=== PATIENT | female | born 1950 | race Caucasian/White ===

== ENCOUNTER 2020-01-01 07:19 | Outpatient (CLI) | payer OTHER | END 2020-01-01 09:36 | disposition home or self-care (01) | LOC: TOM 07:19 | PROVIDERS: ATTEND Internal Medicine Gastroenterology | DX: K56.600 Partial intestinal obstruction, unspecified as to cause (principal) ==

== ENCOUNTER 2022-12-13 14:50 | Emergency (ER) | payer OTHER ==
[~2022-12-13] VITALS: Ht 160 cm; Wt 56.7 kg
[2022-12-13] MEDS ORDERED: LOSARTAN POTASS50 MG PO (15:37)
[2022-12-13] MEDS ORDERED: FOLIC ACID1 MG PO (15:37)
[2022-12-13] MEDS ORDERED: ENBREL50 MG/1 M1 SUBCUTANEO (15:38)
== END 2022-12-13 22:22 | disposition home or self-care (01) ==
LOC: ER 14:50
DX: J40 Bronchitis, not specified as acute or chronic (principal); D64.9 Anemia, unspecified; N28.9 Disorder of kidney and ureter, unspecified; Z88.8 Allergy status to other drugs, medicaments and biological substances